=== PATIENT | male | born 1950 | race Caucasian/White ===

== ENCOUNTER 2023-08-01 08:40 | Outpatient (CLI) | payer MEDICARE, BC ==
[2023-08-01 12:07] LABS: Hematocrit 48.9 % (38.8-50.0); Hemoglobin 16.3 g/dL (13.5-17.5)
[2023-08-01 12:55] LABS: Anion Gap 13 mmol/L (10-20); BUN (Urea Nitrogen) 15 mg/dL (8.4-25.7); Calc. Creatinine Clearance 0 mL/min (70-130); Calcium 9.6 mg/dL (7.8-10.44); Carbon Dioxide 26 mmol/L (23-31); Chloride 103 mmol/L (98-107); Estimated GFR 64; Glucose 137 mg/dL (83-110); Potassium 5.1 mmol/L (3.5-5.1); Sodium 137 mmol/L (136-145)
== END 2023-08-01 08:41 | disposition home or self-care (01) ==
LOC: CSHLAB 08:40
PROVIDERS: ATTEND Otolaryngology Plastic Surgery within the Head & Neck
DX: Z01.818 Encounter for other preprocedural examination (principal); H90.3 Sensorineural hearing loss, bilateral; J34.3 Hypertrophy of nasal turbinates; J34.2 Deviated nasal septum; M95.0 Acquired deformity of nose; H81.4 Vertigo of central origin
CPT/HCPCS: 80048; 85014; 85018; 93005; 93010